=== PATIENT | male | born 1980 | race African-American/Black ===

== ENCOUNTER 2025-06-15 10:37 | Emergency (ER) | payer MEDICAID, OTHER ==
[~2025-06-15] VITALS: Ht 175.3 cm; Wt 75.0 kg
[2025-06-15 10:57] VITALS: O2SAT 96
[2025-06-15] MEDS ORDERED: IBUP-2028 MT (11:38)
[2025-06-15] MEDS ORDERED: BO1 TP (11:38)
[2025-06-15] MEDS ORDERED: CEPH500C2 MT (11:38)
[2025-06-15] MEDS: KETOROLAC 30MG/ML VIAL IM ONE (11:51)
[2025-06-15] MEDS: DEXAMETHASONE 10 MG/ML VIAL IV ONE (11:52)
[2025-06-15 12:00] VITALS: BP 147/82; PULSE 82; RESP 18; TEMP 36.8; O2SAT 99
[2025-06-15] MEDS: LIDOCAINE HCL 1% 20ML VIAL INFIL ONE (12:03)
== END 2025-06-15 12:06 | disposition home or self-care (01) ==
LOC: ER 10:37
DX: L02.411 Cutaneous abscess of right axilla (principal); I10 Essential (primary) hypertension; Z88.2 Allergy status to sulfonamides
CPT/HCPCS: 99283; 96374; J1885; J1100